=== PATIENT | female | born 1980 | race Asian ===

== ENCOUNTER → 2023-05-06 13:27 | Outpatient (CLI) | payer OTHER, SELFPAY ==
--- NOTE | 2023-05-06 | DI.ECHO.S_ITS ---
[facility]---------+ [facility] +---------+ : : [address] : [address] : : : : [address] : : : : Phone: [phone]+ Echocardiogram Report + + :Name: LIYA NOVEMBER Study Date: 05/06/2023 Height: 62 in : :[facility] ReadingLocation: Weight: 160 lb : : Gender: Female BSA: 1.7 m2 : :: 1980 Age: 42 yrs BP: 126/92 mmHg: :Reason For Study: DYSPNEA : :Ordering Physician: RYAN, : :UBALDO Performed By: Joyce Thomas : :Referring: UBALDO ROJAS : + + Interpretation Summary 1) Normal left ventricular thickness, size, wall motion, and systolic function (EF 60-65%). 2) Upper normal right ventricular size with normal function. 3) No significant valvular abnormalities. 4) No prior Echo available for comparison. Procedure: A two-dimensional transthoracic echocardiogram with color flow and Doppler was performed. The study quality was technically adequate. There is no prior echocardiogram noted for this patient. The patient was in sinus rhythm with heart rates between 68-84 bpm during the exam. Left Ventricle: The left ventricle is normal in size and wall thickness. The ejection fraction is estimated to be 60-65%. Left ventricular systolic function appears normal without focal wall motion abnormalities. Diastolic parameters suggest a relaxation abnormality of the left ventricle, consistent with probable normal filling pressures. Right Ventricle: The right ventricle is at the upper limits of normal in size. The right ventricular systolic function is normal. Atria: The left atrial size is normal. Right atrial size is normal. There is no Doppler evidence for an interatrial shunt. Mitral Valve: The mitral valve is normal in structure and function. There is trace mitral regurgitation. Aortic Valve: The aortic valve is trileaflet. The aortic valve opens well. There is no aortic valve stenosis. There is trace aortic regurgitation. Tricuspid Valve: The tricuspid valve is normal in structure and function. There is trace tricuspid regurgitation. Pulmonic Valve: The pulmonic valve leaflets are thin and pliable; valve motion is normal. There is no pulmonic valvular regurgitation. Great Vessels: The aortic root is normal size. The dimensions of the ascending aorta are normal. The IVC is of normal diameter and collapses greater than 50% with a sniff. This suggests a low right atrial pressure of 3 mm Hg. Pericardium/ Pleura There is no pericardial effusion. There is no pleural effusion. MMode/2D Measurements & Calculations LVIDd: 4.8 cm LVOT diam: 1.9 cm LVIDs: 3.3 cm Ao root diam: 3.0 cm FS: 31.4 % asc Aorta Diam: 3.2 cm EPSS: 0.63 cm Ao Arch Diam (Prox Trans): 2.7 cm IVSd: 0.72 cm LVPWd: 0.67 cm LV cuellar. diameter/BSA (cm/m^2): 2.7 LV sys. diameter/BSA (cm/m^2): 1.9 LA A2 area: 15.1 cm2 RA long axis: 4.6 cm LA A4 area: 14.9 cm2 RA area: 12.0 cm2 LA length (vol): 5.0 cm RA vol: 26.5 ml LA vol: 38.1 ml RA : 15.3 ml/m2 LA vol index: 21.9 ml/m2 IVC diam: 1.5 cm RVD1 (basal): 4.0 cm RVD2 (mid): 3.8 cm TAPSE: 2.0 cm Doppler Measurements & Calculations Ao V2 max: 147.1 cm/sec LVOT Max Nicko: 98.5 cm/sec Ao V2 mean: 108.8 cm/sec LV V1 max P.9 mmHg Ao max P.7 mmHg LV V1 VTI: 21.4 cm Ao mean P.1 mmHg ANDREE(I,D): 2.0 cm2 Ao V2 VTI: 31.5 cm ANDREE(V,D): 2.0 cm2 sev ratio: 0.68 ANDREE indexed to BSA (cm^2/m^2): 1.2 MV E max nicko: 96.6 cm/sec PA V2 max: 105.7 cm/sec MV A max nicko: 62.0 cm/sec PA V2 mean: 75.2 cm/sec MV E/A: 1.6 PA mean P.5 mmHg Med Peak E' Nicko: 8.6 cm/sec PA pr(Accel): 32.8 mmHg E/E' med: 11.2 Lat Peak E' Nicko: 16.7 cm/sec E/E' lat: 5.8 E/e' average: 8.5 MV dec time: 0.21 sec SV(LVOT): 63.5 ml Reading Physician:11:21 AM
--- NOTE | 2023-05-06 19:26 | DI.NM.S_ITS ---
DATE OF SERVICE: 05/06/2023 PROCEDURE: Exercise stress test. INDICATIONS: Palpitation, underlying diabetes mellitus, dizziness. CARDIAC STRESS: Patient underwent exercise stress test under the supervision of an attending staff. She walked on Marshal protocol for 9 minutes and 5 seconds, achieved maximum heart rate of 169, which was 95% of target heart rate. Normal blood pressure response. Resting blood pressure 122/84 and peak blood pressure 152/80. Baseline rhythm was sinus with some nonspecific ST-T changes. During stress, no convincing ischemic changes seen. The patient has intermittent isolated PVCs without any ventricular tachycardia. There was late recovery. After 5 minutes into the recovery, sinus rate was about 110. She did not have any chest pain, however, had dyspnea and fatigue. Oxygen saturation was 99%. ALIYAH minus 7%. METs 10.1. CONCLUSION: Exercise stress test is negative for inducible ischemia. Good exercise tolerance. ALIYAH minus 7%. Normal blood pressure response. Intermittent PVCs without any ventricular tachycardia. Late recovery. Patient had dyspnea and fatigue with oxygen saturation 99%. Overall low- risk exercise stress test. LIYANovember JESSICA/annelise/ doc#: [id number]/job#: [id number] dd: 05/06/2023 16:36:00 dt: 05/06/2023 19:16:00 DICTATING /COPIES TO: Maya Rose MD COPIES MNE: JEREL;
== END ==
PROVIDERS: Referring Provider Internal Medicine Cardiovascular Disease; Visit Provider Internal Medicine Cardiovascular Disease
DX: E11.9 Type 2 diabetes mellitus without complications (principal); R06.09 Other forms of dyspnea; I49.3 Ventricular premature depolarization
CPT/HCPCS: 93017; 93306